=== PATIENT | female | born 1980 | race Two or more races ===

== ENCOUNTER 2024-04-04 07:05 | Emergency (ER) | payer MEDICAID, SELFPAY ==
[2024-04-04 07:06] VITALS: BMI 31.6
[2024-04-04 07:15] VITALS: BP 106/68; PULSE 65; RESP 18; TEMP 36.7; O2SAT 99; BMI 30.2
--- NOTE | 2024-04-04 07:26 | EDNOTE_ITS ---
ED Eye Problem RME/HPI General Chief complaint: Eye Problems Stated complaint: EYE PAIN AND SWELLING Time Seen by Provider: 04/04/24 07:15 Arrival date/time: 04/04/24 07:05 43-year-old female presents emergency department complains of bulging eyes diagnosed with thyroid issues patient also reports discharge and irritation to both eyes ongoing for months Limitations: no limitations Related Data Home Medications ?Medication ?Instructions ?Recorded ?Confirmed [id number] 1 mg 1 tab PO DAILY 08/30/21 08/30/21 tablet Previous Rx's ?Medication ?Instructions ?Recorded hydrocodone 5 mg-acetaminophen 325 1 tab PO Q4H PRN pain #20 tabs 09/01/21 mg tablet tobramycin 0.3 %-dexamethasone 0.1 2 drp ophthalmic (eye) QID 7 days 04/04/24 % eye drops,suspension (TobraDex) #10 mL Allergies Allergy/AdvReac Type Severity Reaction Status Date / Time No Known Allergies Allergy Unknown Unverified 04/04/24 07:09 Review of Systems Review of Systems Systems Reviewed: All systems reviewed, normal except as documented Constitutional Constitutional: Reports system reviewed and no additional complaints, except as documented, Denies fever(s) and Denies headache(s) Eyes Eyes: Reports system reviewed and no additional complaints, except as documented, Denies blurry vision, Reports exophthalmos and Reports irritation ENT Ears, Nose, Mouth, and Throat: Reports system reviewed and no additional complaints, except as documented, Denies headache(s), Denies nasal congestion and Denies nasal discharge Cardiovascular Cardiovascular: Reports system reviewed and no additional complaints, except as documented, Denies chest pain and Denies dyspnea Respiratory Respiratory: Reports system reviewed and no additional complaints, except as documented, Denies chest congestion, Denies cough and Denies dyspnea Gastrointestinal Gastrointestinal: Reports system reviewed and no additional complaints, except as documented and Denies abdominal pain Integumentary/Breasts Skin/Breast: Reports system reviewed and no additional complaints, except as documented and Denies rash Neurologic Neurologic: Reports system reviewed and no additional complaints, except as documented, Reports as per HPI and Denies headache(s) Past Medical History Past Medical History NEUROLOGIC: Negative Neurological Disorders or Seizures CARDIAC: Negative Cardiac Disorders or Congestive Heart Failure RESPIRATORY: Negative Chronic Obstructive Pulmonary Disease (COPD) GASTROINTESTINAL: Negative Gastrointestinal Disorders GENITOURINARY: Negative Genitourinary Disorders or Renal Disease MUSCULOSKELETAL: Negative Musculoskeletal Disorders ENDOCRINE: Negative Endocrine Disorders, Diabetes Mellitus Type 1 or Diabetes Mellitus Type 2 HEMATOLOGIC: Negative Blood Disorders OTHER HISTORY: Negative Blood Transfusions, Blood Transfusion Reaction, Anesthesia Reactions, Organ Transplant, Chemotherapy, Radiation Therapy, Hyperbaric Therapy or Cancer Family History FAMILY HISTORY: Negative Family Cardiac Disorders Surgical History SURGICAL: Negative Organ Transplant Social History SMOKING STATUS: Never smoker ED Exam General Limitations: Present no limitations General appearance: Present alert and in no apparent distress Head Head exam: Present atraumatic, normocephalic and normal inspection Eye Eye exam: Present PERRL, EOMI and other (Ecchymosis bilateral eyes, expothalmus ); Absent conjunctival injection ENT ENT exam: Present normal exam, normal oropharynx and mucous membranes moist Neck Neck exam: Present normal inspection, full ROM and trachea midline Chest Chest inspection: Present normal inspection and symmetric chest wall rise Respiratory Respiratory exam: Present normal lung sounds bilaterally Cardiovascular Cardiovascular exam: Present regular rate, normal rhythm and normal heart sounds Abdominal Exam Abdominal exam: Present soft and normal bowel sounds Extremities Exam Extremities exam: Present normal inspection and full ROM Back Exam Back exam: Present normal inspection and full ROM Neurological Exam Neurological exam: Present alert, oriented X3 and CN II-XII intact Psychiatric Psychiatric exam: Present normal affect and normal mood Skin Skin exam: Present warm, dry, intact and normal color Course Quality Measures none Vital Signs Vital signs: Vital Signs Temperature 98.0 F 04/04/24 07:15 Pulse Rate 65 04/04/24 07:15 Respiratory Rate 18 04/04/24 07:15 Blood Pressure 106/68 04/04/24 07:15 Pulse Oximetry (%) 99 04/04/24 07:15 Oxygen Delivery Method Room Air 04/04/24 07:15 O2 saturation 99% room air within normal limits Eye MDM Narrative MDM Narrative:: 43-year-old female presents emergency department complains of bulging eyes diagnosed with thyroid issues patient also reports discharge and irritation to both eyes ongoing for months On exam patient does not appear ill or toxic in no acute distress Patient assures me she has no difficulty with vision On exam patient appears to explothalmus which may be related to her thyroid di sease On exam patient appears to have chemosis of bilateral eyes I do not believe that this is related to the thyroid disease Patient will treat with course of antibiotics I explained to the patient that she must follow-up with ophthalmology as soon as possible for worsening symptoms to return immediately Patient data External records reviewed:: [facility] previous records Clinical information provided by:: patient Social determinants that could affect healthcare access:: none Patient has the following chronic illnesses:: See history How is presenting disease/condition affected by chronic disease/condition?: uneffected by Evaluation data The following diagnostics were reviewed and interpreted by me:: other (specify) (N/A) Lab and/or radiology exams considered but not ordered:: Consider not ordered Interpretation Summary: N/A Medications / Prescriptions Medications or Prescriptions considered but not ordered:: Given Medication administrations:: Given Consultations Consultation(s) initiated? (list below): No Diagnosis Eye Problem Differential Diagnosis: corneal abrasion, conjunctivitis, hyphema, periorbital cellulitis, glaucoma, corneal ulcer and ruptured globe Most likely diagnosis given after review of the tests above:: chemosis Admission Indicated Admission indicated?: not indicated Admission Request Was there a request for admission?: No Disposition Plan Disposition Plan: Discharge Discharge Attestation Discharge Attestation: The patient and all family members were given an opportunity to ask questions and understood the discharge instructions. Discharge instructions specifically effects, indications for sooner follow up or return to the emergency department, and the expected course of current diagnosis. Patient condition: Stable Discharge Plan Plan Patient Disposition: HOME (Self Care) Disposition Comment: Stable Prescriptions/Referrals Prescriptions/Med Rec: New tobramycin-dexamethasone [TobraDex] 0.3-0.1 % drops,suspension 2 drp ophthalmic (eye) QID 7 Days Qty: 10 0RF No Action 1 mg Tablet 1 tab PO DAILY hydrocodone-acetaminophen 5-325 mg tablet 1 tab PO Q4H MDD 5 PRN (Reason: pain) Qty: 20 0RF Problem List Clinical Impression: Discharge from eye Patient/Caregiver Discharge Instructions Education Materials: How the Eye Works Additional Instructions: Please follow-up with radiator specialist as discussed as soon as possible for worsening symptoms return immediately Print Language: Albanian Stand Alone Forms: Ann Award Info., Patient Portal Info Letter PA/[employer]ACH[employer]CH[employer]IC Supervising Physician PA/[employer] MACHINE MECHANIC Supervising Physician: Dr. aguilar
== END 2024-04-04 07:35 | disposition home or self-care (01) ==
LOC: SERX 07:40
PROVIDERS: Emergency Provider Emergency Medicine
DX: H57.89 Other specified disorders of eye and adnexa (principal)
CPT/HCPCS: 99281